=== PATIENT | male | born 1960 | race African-American/Black ===

== ENCOUNTER 2020-03-07 16:25 | Emergency (ER) | payer MEDICARE, OTHER, SELFPAY ==
--- NOTE | 2020-03-07 16:41 | HMH.EDUTC ---
[facility] [place] Clinical Impression: Exacerbation of gout Disposition: Home, Self-Care Condition on Discharge: Good Instructions: Gout, DI for Gout Additional Instructions: Go home and rest. Don't start the oral steroids until tomorrow. Follow up with your regular doctor. GO TO THE ER FOR ANY WORSENING SYMPTOMS OR CONCERNS Prescriptions: Colchicine [Colcrys 0.6mg tablet] 0.6 mg PO DIRECTED #3 tab Transmission Status: Received by [employer] #[id number] methylPREDNISolone [Medrol] 4 mg PO DIRECTED 6 Days #21 tab.ds.pk Transmission Status: Received by [employer] #[id number] Referrals: Yusuf Mauricio MD [Primary Care Provider] - Time of Disposition: 17:15 Medical Decision Making - Medical Records Medical records reviewed: No: I reviewed the patient's medical records. - Tha Inquiry Pt receiving controlled substance: No Vital Signs: 03/07/20 16:46 03/07/20 17:17 Temperature 98.1 F 98.1 F Temperature Source Oral Pulse Rate 65 Pulse Rate [Right Brachial] 65 Respiratory Rate 19 19 Blood Pressure 180/91 H Blood Pressure [Right Arm] 180/91 H Blood Pressure Mean [Right Arm] 120 Blood Pressure Source [Right Arm] Automatic Cuff Blood Pressure Position [Right Arm] Sitting 02 Sat by Pulse Oximetry 99 Oxygen Delivery Method Room Air Orders (Tests/Meds): ED MEDICATIONS Discontinued Medications Generic Name Dose Route Start Last Admin Trade Name Freq PRN Reason Stop Dose Admin Methylprednisolone Sodium Succinate 125 mg 03/07/20 16:57 03/07/20 17:04 Solu-Medrol 125mg/2ml Vial IM 03/07/20 16:58 125 mg ONCE ONE Administration [facility] [place] - General Stated complaint: Left hand swollen,pain Time Seen by Provider: 03/07/20 16:47 - History of Present Illness Provider Complaint: He c/o left wrist pain for the past 2 days. He states that this is a gout flare up. He has had similar symptoms in the past. He states that he is out of his colcicine at home or he would have just taken that. - Related Data Previous Rx's Medication Instructions Recorded lisinopril 10 mg tablet 10 mg PO DAILY #90 tab 01/08/20 Colchicine [Colcrys 0.6mg tablet] 0.6 mg PO DIRECTED #3 tab 03/07/20 methylPREDNISolone [Medrol] 4 mg PO DIRECTED 6 Days #21 03/07/20 tab.ds.pk Allergies Allergy/AdvReac Type Severity Reaction Status Date / Time No Known Allergies Allergy Verified 08/28/19 15:25 [facility] History - Hepatitis A Screen Attestation statement:: This patient has been screened for Hepatitis A risk factors. I have reviewed the patient's past medical history: Yes Other Medical History: Reports: Arthritis Other Surgeries: Yes: Other (rt ankle,) Amputation: No Fractures: Yes (bilateral ankles) - Social History Smoking Status: Current every day smoker Tobacco Type: cigarettes # Packs/Day (cigarettes): 1 Alcohol Intake: current Alcohol Intake Frequency:: 3 or more drinks per day Substance Use Type: denies use Occupational Status: employed Family Hx:: Diabetes ROS Obtained: Yes All systems reviewed & no additional complaints - Constitutional Constitutional: Denies chills, Denies fever(s) - Eyes Eyes: Denies eye discharge - Musculoskeletal Musculoskeletal: Reports as per HPI - Integumentary/Breasts Skin/Breast: Denies redness, Denies rash, Denies wounds Physical Exam - General General appearance: alert, in no apparent distress - Head Head exam: atraumatic, normocephalic, normal inspection - Eye Eye exam: Present: normal appearance, PERRL, EOMI - ENT ENT exam: Present: normal exam, normal oropharynx, mucous membranes moist, TM's normal bilaterally, normal external ear exam - Neck Neck exam: Present: normal inspection, full ROM, trachea midline. Absent: meningismus, lymphadenopathy - Chest Chest inspection: Present: normal inspection, symmetric chest wall rise. Absent: tenderness - Respiratory Respiratory exam: Prese
[2020-03-07 16:46] VITALS: BP 180/91; PULSE 65; RESP 19; TEMP 36.7; O2SAT 99; BMI 27.4
[2020-03-07 17:17] VITALS: BP 180/91; PULSE 65; RESP 19; TEMP 36.7; O2SAT 99
== END 2020-03-07 17:21 | disposition home or self-care (01) ==
PROVIDERS: Emergency Provider Nurse Practitioner Family; PCP Emergency Medicine
DX: M10.042 Idiopathic gout, left hand (principal); I10 Essential (primary) hypertension; F17.210 Nicotine dependence, cigarettes, uncomplicated
CPT/HCPCS: 96372; 99201

== ENCOUNTER 2020-04-29 14:11 | Emergency (ER) | payer MEDICARE, OTHER, SELFPAY ==
[2020-04-29 14:12] VITALS: BP 137/94; TEMP 36.5
[2020-04-29 14:21] VITALS: BP 172/121; PULSE 110; RESP 18; O2SAT 97; BMI 26.6
--- NOTE | 2020-04-29 14:23 | HMH.EDGENADL ---
ED Disposition Clinical Impression: Bursitis Qualifiers: Bursitis location: elbow Elbow bursitis location: olecranon bursitis Laterality: left Qualified Code(s): M70.22 - Olecranon bursitis, left elbow Disposition: Home, Self-Care Condition on Discharge: Good Instructions: DI for Elbow Bursitis Prescriptions: methylPREDNISolone [Medrol] 4 mg PO DIRECTED #21 pack Transmission Status: Pending to [employer] #[id number] Referrals: Linda Tamez MD [Physician] - 05/01/20 - Critical Care Critical Care Time: No Attestation: On , the high probability of a clinically significant, sudden or life threatening deterioration of the following system(s) required my full and direct attention, intervention and personal management. The time I documented below is in addition to time spent performing reported procedures but includes the following listed in this critical care notation. Medical Decision Making - Medical Records Medical records reviewed: Yes: I reviewed the patient's medical records. - Tha Inquiry Pt receiving controlled substance: No Vital Signs: 04/29/20 14:21 Pulse Rate [Radial] 110 H Respiratory Rate 18 Blood Pressure [Right Arm] 172/121 H Blood Pressure Mean [Right Arm] 138 Blood Pressure Source [Right Arm] Automatic Cuff Blood Pressure Position [Right Arm] Sitting 02 Sat by Pulse Oximetry 97 Oxygen Delivery Method Room Air Medical Decision Narrative: Patient is afebrile and with bursitis of the left elbow. No trauma that would prompt imaging. He does not have generalized joint swelling, low suspicion for septic arthritis. He is currently taking Bactrim which I have advised that he continue to take and have advised follow-up with Ortho for further management. Also recommended compression with an Bipin bandage to help with pain. Encouraged him to return if he develop fever or worsening of symptoms. General Adult HPI - General Stated complaint: left elbow and arm pain, no accident Time Seen by Provider: 04/29/20 14:23 Mode of Arrival: Ambulatory Source of Information: Patient Limitations: No Limitations - History of Present Illness HPI narrative: This is a 59-year-old male with a past medical history significant for arthritis, left elbow cellulitis who presents to the emergency department for evaluation of increased swelling over the posterior elbow, redness for the last 2 days. He was seen on the first day by Osiris Chun, given Bactrim ointment and oral antibiotics which he has been taking. While the redness has improved, he has not been having any relief of the pain and the posterior part of the elbow remains swollen. No IV drug use. No generalized joint swelling. He has not had any objective fevers. No exacerbating or alleviating factors. No trauma. - Related Data Previous Rx's Medication Instructions Recorded lisinopril 10 mg tablet 10 mg PO DAILY #90 tab 01/08/20 Colchicine [Colcrys 0.6mg tablet] 0.6 mg PO DIRECTED #3 tab 03/07/20 methylPREDNISolone [Medrol] 4 mg PO DIRECTED 6 Days #21 03/07/20 tab.ds.pk methylPREDNISolone [Medrol] 4 mg PO DIRECTED #21 pack 04/29/20 Allergies Allergy/AdvReac Type Severity Reaction Status Date / Time No Known Allergies Allergy Verified 08/28/19 15:25 [facility] History - Hepatitis A Screen Attestation statement:: This patient has been screened for Hepatitis A risk factors. I have reviewed the patient's past medical history: Yes Other Medical History: Reports: Arthritis Other Surgeries: Yes: Other (rt ankle,) Amputation: No Fractures: Yes (bilateral ankles) - Social History Smoking Status: Current every day smoker Tobacco Type: cigarettes # Packs/Day (cigarettes): 1 Alcohol Intake: never Alcohol Intake Frequency:: 3 or more drinks per day Substance Use Type: denies use Occupational Status: other Family Hx:: Diabetes ROS Obtained: Yes All systems reviewed & no additional complaints Physical Exam - G
[2020-04-29 14:50] VITALS: BP 137/94; PULSE 87; RESP 18; TEMP 36.5; O2SAT 98
== END 2020-04-29 14:55 | disposition home or self-care (01) ==
LOC: ER 14:58
PROVIDERS: Emergency Provider Emergency Medicine; PCP Emergency Medicine
DX: M70.22 Olecranon bursitis, left elbow (principal); F17.210 Nicotine dependence, cigarettes, uncomplicated
CPT/HCPCS: 99282

== ENCOUNTER 2020-10-27 12:17 | Emergency (ER) | payer MEDICARE, OTHER, SELFPAY ==
[2020-10-27 12:36] VITALS: BP 157/104; PULSE 96; RESP 19; TEMP 36.4; O2SAT 100; BMI 27.2
--- NOTE | 2020-10-27 12:44 | HMH.EDUTC ---
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, left knee Disposition: Home, Self-Care Condition on Discharge: Good Instructions: DI for Gout, Gout Additional Instructions: follow up with pcp return if symptoms worsen or do not improve Prescriptions: predniSONE [Prednisone 20mg Tab] 20 mg PO BID #10 tab Transmission Status: Pending to [employer] #[id number] Referrals: Yusuf Mauricio MD [Primary Care Provider] - Time of Disposition: 12:49 Medical Decision Making - Tha Inquiry Pt receiving controlled substance: No Vital Signs: 10/27/20 12:36 Temperature 97.5 F L Temperature Source Tympanic Pulse Rate [Right] 96 H Respiratory Rate 19 Blood Pressure [Right Arm] 157/104 H Blood Pressure Mean [Right Arm] 121 Blood Pressure Source [Right Arm] Automatic Cuff Blood Pressure Position [Right Arm] Sitting 02 Sat by Pulse Oximetry 100 Oxygen Delivery Method Room Air [facility] [place] HPI - General Chief complaint: Urgent [facility] Center Stated complaint: Swelling in knee Time Seen by Provider: 10/27/20 12:44 Mode of Arrival: Wheelchair Source of Information: Patient Limitations: No Limitations Description of Symptoms (Recalled from Triage Doc. by RN): pt is having left knee pain that radiates down to his ankle. pt states its from a previous surgery on his knee and he generally gets cortison injections in his knee. HEENT Symptoms (Recalled from RN notes): No Resp Symptoms (Recalled from RN notes): No Skin Symptoms (Recalled from RN notes): No MS Symptoms (Recalled from RN notes): Yes (L knee pain) Functional Status (Recalled from RN notes): na - History of Present Illness Provider Complaint: 59 yr old male presents for left knee pain. pt states is having left knee pain that radiates down to his ankle. pt states its from a previous surgery on his knee and he generally gets cortison injections in his knee 2-3x a year. pt states this is his usual issues he has with his knee and does not want any other work up on knee - Related Data Previous Rx's Medication Instructions Recorded lisinopril 10 mg tablet 10 mg PO DAILY #90 tab 01/08/20 Colchicine [Colcrys 0.6mg tablet] 0.6 mg PO DIRECTED #3 tab 03/07/20 methylPREDNISolone [Medrol] 4 mg PO DIRECTED 6 Days #21 03/07/20 tab.ds.pk methylPREDNISolone [Medrol] 4 mg PO DIRECTED #21 pack 04/29/20 predniSONE [Prednisone 20mg 20 mg PO BID #10 tab 10/27/20 Tab] Allergies Allergy/AdvReac Type Severity Reaction Status Date / Time No Known Allergies Allergy Verified 10/27/20 12:41 - Worker's Comp Is this a Worker's Comp case?: No [facility] History - Hepatitis A Screen Drug use history?: No High risk sexual behaviors?: No History of sexually transmitted infection?: No Currently employed?: No Childcare worker?: No Do you have indoor plumbing?: Yes Do you have electricity?: Yes Attestation statement:: This patient has been screened for Hepatitis A risk factors. I have reviewed the patient's past medical history: Yes Other Medical History: Reports: Arthritis Other Surgeries: Yes: Other (rt ankle,) Amputation: No Fractures: Yes (bilateral ankles) - Social History Smoking Status: Unknown if ever smoked Tobacco Type: cigarettes # Packs/Day (cigarettes): 1 Alcohol Intake: never Alcohol Intake Frequency:: 3 or more drinks per day Substance Use Type: denies use Occupational Status: disabled Family Hx:: Diabetes ROS Obtained: Yes Systems reviewed as appropriate & no additional complaints - Constitutional Constitutional: Reports system reviewed and no additional complaints, except as docu, Denies fever(s) - Eyes Eyes: Reports system reviewed and no additional complaints, except as docu, Denies change in vision - ENT Ears, Nose, Mouth, and Throat: Reports system reviewed and no additional
[2020-10-27 13:04] VITALS: BP 151/99; PULSE 91; RESP 14; TEMP 36.6
== END 2020-10-27 13:04 | disposition home or self-care (01) ==
PROVIDERS: Emergency Provider Nurse Practitioner Family; PCP Emergency Medicine
DX: M10.462 Other secondary gout, left knee (principal); F17.210 Nicotine dependence, cigarettes, uncomplicated
CPT/HCPCS: G0463; 96372; 99202

== ENCOUNTER 2020-11-25 16:21 | Emergency (ER) | payer MEDICARE, OTHER, SELFPAY ==
[2020-11-25 16:41] VITALS: BP 141/86; PULSE 86; RESP 20; TEMP 36.7; O2SAT 98; BMI 25.0
--- NOTE | 2020-11-25 17:08 | HMH.EDUTC ---
[facility] [facility] [place] Clinical Impression: Sinusitis Qualifiers: Sinusitis location: unspecified location Chronicity: unspecified Qualified Code(s): J32.9 - Chronic sinusitis, unspecified Acute bronchitis Qualifiers: Bronchitis organism: unspecified organism Qualified Code(s): J20.9 - Acute bronchitis, unspecified Disposition: Home, Self-Care Condition on Discharge: Good Instructions: Sinusitis, DI for Sinusitis, Acute Bronchitis, Azithromycin, Prednisone Additional Instructions: ? Start antibiotic today. Be sure to complete entire prescription even if feeling better ? Monitor temp. Tylenol every 4 hours as needed and / or ibuprofen every 6 hours as needed ( As long as your primary care physician has told you that it ok to take both. For fever/aches/pains ER if no less than 101 despite Tylenol or Motrin ? Humidifier/vaporizer or hot steamy shower ? Inhaler every 4-6 hours as needed like we discussed. If unsure how to use it, ask pharmacist to demonstrate how. Should help open airways and improve cough, wheezing, and shortness of breath ? Mucinex during the day for your cough and cough suppressant only at night. Be sure to drink lots of water. Insurance may not cover a prescriptions for mucinex. Might be cheaper to get 400mg tablets and take 2 tablet in the morning, mid-day and evening with lots of water. *Start steroid today. Helps with inflammation therefore, cough and wheezing. Follow directions on the package. Reviewed side effects. Patient reports taking them before. Follow up IMMEDIATELY for new or worsening of symptoms OR no noticeable improvement over the next 48-72 hours. 911 immediately for any life threatening symptoms such as chest pain or difficulty breathing Prescriptions: Albuterol Sulfate [Proventil-HFA 90mcg/puff Inh] 1 - 2 puffs IH Q4HP PRN #1 inh PRN Reason: Shortness Of Breath Transmission Status: Pending to [employer] #[id number] predniSONE [Deltasone 10mg tablet] 10 mg PO BID 5 Days #10 tab Transmission Status: Pending to [employer] #[id number] guaiFENesin [Mucinex 600mg tablet] 600 mg PO BID PRN #20 tab.er.12h PRN Reason: Congestion Transmission Status: Pending to [employer] #[id number] Azithromycin [Z-Mitchell 250mg Tab] 250 mg PO DIRECTED #6 tab Transmission Status: Pending to [employer] #[id number] Referrals: Yusuf Mauricio MD [Primary Care Provider] - As needed Time of Disposition: 17:19 Medical Decision Making - Tha Inquiry Pt receiving controlled substance: No Tha was queried for this patient: No Vital Signs: 11/25/20 16:41 Temperature 98.0 F Temperature Source Oral Pulse Rate [Right Brachial] 86 Respiratory Rate 20 Blood Pressure [Right Arm] 141/86 H Blood Pressure Mean [Right Arm] 104 Blood Pressure Source [Right Arm] Automatic Cuff Blood Pressure Position [Right Arm] Sitting 02 Sat by Pulse Oximetry 98 Oxygen Delivery Method Room Air [facility] [place] - General Stated complaint: congestion Time Seen by Provider: 11/25/20 17:08 Mode of Arrival: Wheelchair Limitations: No Limitations Description of Symptoms (Recalled from Triage Doc. by RN): COUGH, CONGESTION X3 DAYS HEENT Symptoms (Recalled from RN notes): No Resp Symptoms (Recalled from RN notes): Yes Skin Symptoms (Recalled from RN notes): No MS Symptoms (Recalled from RN notes): No Functional Status (Recalled from RN notes): WNL - History of Present Illness Provider Complaint: Patient state that he thinks he may have sinus infection or bronchtitis state that he has been having nasal congestion, cough, sinus pressure and feels like it is trying to move into his chest State that he hasnt been around anyone with COVID but wanted to come in and see if he needed some antibiotics to get him cleared up - Related Data Previous Rx's Medication Instructions Recorded lisinopril 10 mg tablet 10 mg PO DAILY #90 tab 01/08/20 Colchicine [Colcrys 0.6mg tablet] 0.6 mg PO DIRECTED #3 tab 03/07/20 m
[2020-11-25 17:17] VITALS: BP 141/86; PULSE 86; RESP 20; TEMP 36.7; O2SAT 98
== END 2020-11-25 17:22 | disposition home or self-care (01) ==
PROVIDERS: Emergency Provider Nurse Practitioner; PCP Emergency Medicine
DX: J32.9 Chronic sinusitis, unspecified (principal); J20.9 Acute bronchitis, unspecified; F17.210 Nicotine dependence, cigarettes, uncomplicated
CPT/HCPCS: G0463; 99202